=== PATIENT | male | born 1955 | race Caucasian/White ===

== ENCOUNTER 2023-10-08 11:05 | Outpatient (RCR) | payer OTHER, SELFPAY | END 2023-10-08 23:59 | disposition home or self-care (01) | LOC: RPT 11:05 | PROVIDERS: ATTENDING PHYSICIAN Orthopaedic Surgery; FAMILY PHYSICIAN Family Medicine | DX: Z47.1 Aftercare following joint replacement surgery (principal); M17.11 Unilateral primary osteoarthritis, right knee; Z73.6 Limitation of activities due to disability; R26.2 Difficulty in walking, not elsewhere classified; M25.561 Pain in right knee; M62.81 Muscle weakness (generalized); Z96.653 Presence of artificial knee joint, bilateral; Z96.619 Presence of unspecified artificial shoulder joint | CPT/HCPCS: 97010; 97110; 97140; 97530 ==

== ENCOUNTER 2023-11-03 11:07 | Outpatient (RCR) | payer OTHER, SELFPAY | END 2023-11-03 23:59 | disposition home or self-care (01) | LOC: RPT 11:07 | PROVIDERS: ATTENDING PHYSICIAN Orthopaedic Surgery; FAMILY PHYSICIAN Family Medicine | DX: Z47.1 Aftercare following joint replacement surgery (principal); M17.11 Unilateral primary osteoarthritis, right knee; Z73.6 Limitation of activities due to disability; R26.2 Difficulty in walking, not elsewhere classified; M62.81 Muscle weakness (generalized); M25.561 Pain in right knee; Z96.653 Presence of artificial knee joint, bilateral | CPT/HCPCS: 97110; 97140; 97530 ==

== ENCOUNTER 2023-11-14 11:02 | Outpatient (RCR) | payer OTHER, SELFPAY | END 2023-11-14 12:48 | disposition home or self-care (01) | LOC: RPT 11:02 | PROVIDERS: ATTENDING PHYSICIAN Orthopaedic Surgery; FAMILY PHYSICIAN Family Medicine | DX: M17.11 Unilateral primary osteoarthritis, right knee (principal); Z73.6 Limitation of activities due to disability; R26.2 Difficulty in walking, not elsewhere classified; M25.561 Pain in right knee | CPT/HCPCS: 97110; 97112; 97530 ==

== ENCOUNTER → 2024-03-05 17:52 | Outpatient (REF) | payer OTHER, MEDICARE, SELFPAY | LOC: PAVMRI 17:52 | PROVIDERS: ATTENDING PHYSICIAN Pain Medicine Interventional Pain Medicine; FAMILY PHYSICIAN Family Medicine | DX: M54.16 Radiculopathy, lumbar region (principal) | CPT/HCPCS: 72148 ==

== ENCOUNTER → 2024-04-20 08:05 | Outpatient (REF) | payer OTHER, MEDICARE, SELFPAY | LOC: EMG 08:05 | PROVIDERS: ATTENDING PHYSICIAN Physician Assistant; FAMILY PHYSICIAN Family Medicine | DX: M54.16 Radiculopathy, lumbar region (principal); M62.81 Muscle weakness (generalized); M62.551 Muscle wasting and atrophy, not elsewhere classified, right thigh | CPT/HCPCS: 95886; 95911 ==